=== PATIENT | male | born 1985 | race Caucasian/White ===

== ENCOUNTER 2020-01-15 13:34 | Outpatient (REF) | payer OTHER, SELFPAY | END 2020-01-15 13:35 | disposition home or self-care (01) | LOC: HO.SH 13:34 | PROVIDERS: PCP Family Medicine; Referring Provider Family Medicine; Visit Provider Family Medicine | DX: H90.3 Sensorineural hearing loss, bilateral (principal) | CPT/HCPCS: 92593; 99499; V5266 ==

== ENCOUNTER 2020-04-16 09:21 | Outpatient (REF) | payer OTHER, SELFPAY | END 2020-04-16 09:22 | disposition home or self-care (01) | LOC: HO.HAP 09:21 | PROVIDERS: Visit Provider Family Medicine | DX: Z46.1 Encounter for fitting and adjustment of hearing aid (principal) | CPT/HCPCS: 92593; 99499; V5266 ==

== ENCOUNTER 2020-04-24 08:11 | Outpatient (REF) | payer OTHER, SELFPAY | END 2020-04-24 08:12 | disposition home or self-care (01) | LOC: HO.HAP 08:11 | PROVIDERS: Visit Provider Family Medicine | DX: Z46.1 Encounter for fitting and adjustment of hearing aid (principal); H90.3 Sensorineural hearing loss, bilateral | CPT/HCPCS: V5014 ==

== ENCOUNTER 2020-07-14 12:50 | Outpatient (REF) | payer OTHER, MEDICAID, SELFPAY ==
--- NOTE | 2020-07-15 13:23 | MHC.AU.HFU ---
Hearing Instrument Follow-Up- Binaural Date of Visit: 07/14/20 Bottom Precipitator Operator Used: Not Applicable Right Ear: Family Welfare Social Work Professor: Oticon Model: OPN 2 PP Serial Number: New # after repair: [id number] Previous #: [id number] Repair Warranty: Repair warranty for right: 05/08/2019 Battery Size: 13 Tubing: #13M DRY Type of Mold: Acrykic Skeleton Dispensed By: [facility] Date of Fitting: Ship date per Oticon: 12/30/2016 Left Ear: Family Welfare Social Work Professor: Oticon Model: OPN 2 PP Serial Number: [id number] Battery Size: 13 TubinM DRY Type of Mold: Acrylic Skeleton Dispensed By: [facility] Date of Fitting: Ship date per Oticon: 12/30/2016 Follow-Up Summary: Maintenance appointment - Left ear mold broken. Took impressions of both ears without complication for new ear molds. Changed tubing for both OPN 2 aids and cleaned microphones and contacts. Hearing aid amplifying clearly. Reprogrammed the left ear per patient request as it has too much trebel sound . Decreased left aid 5839-3892 Hz overall 3 dB. Also changed the volume control changed back to being synchronized per patient request. Patient brought in his old binaural Oticon Acto BTEs he uses at work. He reports he is getting almost constant feedback from both and cannot hear well with them. Visual inspection shows complete occlusion of the rear and one side microphone on both aids with very muffled sound quality. The debris was very impacted and it took approxiamtely 1/2 hour to clean out only a portion of the impacted debris. However, patient reports significantly improved sound quality and no feedback. Recommendations: Recommendations (Other): Call to schedule appointment when new ear molds are received. Diagnosis Code(s): Primary Diagnosis: H90.3 Bilateral Sensorineural Hearing Loss Services Performed: Ear Impression (Quantity): 2 PAYNE Non-Quantity Charges: HACHECKB (MH>1 yr or new to us) Face to face appointment Signature: Provider: Megan Gan, [facility]
== END 2020-07-14 12:51 | disposition home or self-care (01) ==
LOC: HO.HAP 12:50
PROVIDERS: Visit Provider Family Medicine
DX: H90.3 Sensorineural hearing loss, bilateral (principal)
CPT/HCPCS: 92593; V5275

== ENCOUNTER 2020-07-31 12:22 | Outpatient (REF) | payer OTHER, MEDICAID, SELFPAY ==
--- NOTE | 2020-07-31 16:45 | MHC.AU.AEV ---
Adult Audiological Evaluation Date of Visit: 07/31/20 Reason for Appointment: Audiological re-evaluation to monitor the status of Mr. Kurtz's hearing loss. He has a longstanding history of bilateral sensorineural hearing loss and hearing aid use. Hearing loss was first diagnosed at age 26 and has been progressive. Does patient feel they have a hearing loss?: Yes If Yes, Which Ear?: Both Ears Has hearing been tested previously?: Yes [place] [facility] [place] Moderate to severe sensorineural hearing loss bilaterally with poor speech discrimination. 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, machine noise Medical History: Medical History: Unremarkable Medical History Hearing Instrument History- Right Ear: Research Development Director: Oticon Model: OPN 2 PP BTE Serial Number: [id number] Battery Size: 13 Repair Warranty: 05/07/2021 Loss and Damage Warranty: 01/29/2019 Dispensed By: [facility] Date of Fitting: Ship date per Oticon: 12/30/2016 Hearing Instrument History- Left Ear: Research Development Director: Oticon Model: OPN 2 PP BTE Serial Number: [id number] Battery Size: 13 Warranty: 01/30/2020 Loss and Damage Warranty: 01/29/2019 Dispensed By: [facility] Date of Fitting: Ship date per Oticon: 12/30/2016 Otoscopy: Right Ear: Unremarkable Left Ear: Unremarkable Tympanometry: Tympanometry performed due to: To assess integrity of the middle ear system Right Ear: Normal Middle Ear System (Type A) Left Ear: Reduced Middle Ear Compliance (Type As) Hearing Evaluation: Transducer(s) Used: Insert Earphones, Bone Conduction Method: Conventional Audiometry Stimuli Used: Pure Tones Right Ear: Description of Hearing: Moderate sloping to severe sensorineural hearing loss from 250-8000 Hz. Left Ear: Description of Hearing: Moderate sloping to moderately severe sensorineural hearing loss from 250-8000 Hz. Speech Recognition Threshold (SRT): Method Used: Monitored Live Voice Stimuli Used: Spondee Words Right Ear: 40 dBHL Left Ear: 45 dBHL Word Discrimination: Method: Monitored Live Voice Recorded Lists Word Lists Used: NU-6 Right Ear: 36% at 90 dBHL (recorded list) Left Ear: 32% at 95 dBHL (recorded list) Binaural: 36% at 90 dBHL (recorded list), 68% at 90 dBHL (monitored live voice) Comparison: Compared to most recent evaluation: Minor threshold increases compared to testing from 2019. Recommendations: Audiological re-evaluation in one year. Hearing aid(s) reprogrammed with updated test results. Diagnosis: Primary Diagnosis: H90.3 Bilateral Sensorineural Hearing Loss Services Performed: Comprehensive Audiological Evaluation (CPT 59936) Tympanometry (CPT 11417) Signature: Provider: Megan Sanderson, CCC-A
== END 2020-07-31 12:23 | disposition home or self-care (01) ==
LOC: HO.SH 12:22
PROVIDERS: Visit Provider Family Medicine
DX: H90.3 Sensorineural hearing loss, bilateral (principal)
CPT/HCPCS: 92557; 92567

== ENCOUNTER 2020-08-05 15:27 | Outpatient (REF) | payer OTHER, MEDICAID, SELFPAY | END 2020-08-05 15:28 | disposition home or self-care (01) | LOC: HO.HAP 15:27 | PROVIDERS: Visit Provider Family Medicine | DX: Z46.1 Encounter for fitting and adjustment of hearing aid (principal); H90.3 Sensorineural hearing loss, bilateral | CPT/HCPCS: V5264 ==

== ENCOUNTER 2020-08-13 13:14 | Outpatient (REF) | payer MEDICAID, SELFPAY | END 2020-08-13 13:15 | disposition home or self-care (01) | LOC: HO.HAP 13:14 | PROVIDERS: Visit Provider Family Medicine | DX: Z46.1 Encounter for fitting and adjustment of hearing aid (principal); H90.3 Sensorineural hearing loss, bilateral | CPT/HCPCS: V5275 ==

== ENCOUNTER 2020-09-07 12:53 | Outpatient (REF) | payer OTHER, MEDICAID, SELFPAY | END 2020-09-07 12:54 | disposition home or self-care (01) | LOC: HO.HAP 12:53 | PROVIDERS: Visit Provider Family Medicine | DX: Z13.89 Encounter for screening for other disorder (principal) ==

== ENCOUNTER 2020-10-19 12:42 | Outpatient (REF) | payer OTHER, SELFPAY | END 2020-10-19 12:43 | disposition home or self-care (01) | LOC: HO.HAP 12:42 | PROVIDERS: Visit Provider Family Medicine | DX: Z13.89 Encounter for screening for other disorder (principal) ==

== ENCOUNTER 2020-11-20 15:00 | Outpatient (REF) | payer OTHER, SELFPAY | END 2020-11-20 15:01 | disposition home or self-care (01) | LOC: HO.HAP 15:00 | PROVIDERS: Visit Provider Family Medicine | DX: Z46.1 Encounter for fitting and adjustment of hearing aid (principal); H90.3 Sensorineural hearing loss, bilateral | CPT/HCPCS: V5266 ==

== ENCOUNTER 2021-01-18 10:33 | Outpatient (REF) | payer OTHER, SELFPAY ==
--- NOTE | 2021-01-20 13:15 | MHC.AU.HFU ---
Hearing Instrument Follow-Up- Binaural Date of Visit: 01/18/21 Right Ear: Instructional Technology Coordinator: Oticon Model: OPN 2 PP BTE Serial Number: New # after repair: [id number] (Previous #: [id number]) Repair Warranty: Repair warranty for right: 05/07/2021 Loss and Damage Warranty: 01/29/2019 Service Plan: Battery Size: 13 Color: Black Tubing: #13M DRY Type of Mold: Microsonic Skeleton Dispensed By: [facility] Date of Fitting: Ship date per Oticon: 12/30/2016 Left Ear: Instructional Technology Coordinator: Oticon Model: OPN 2 PP BTE Serial Number: [id number] Repair Warranty: 01/30/2020 Loss and Damage Warranty: 01/29/2019 Battery Size: 13 Color: Black TubinM DRY Type of Mold: Microsonic Skeleton Dispensed By: [facility] Date of Fitting: Ship date per Oticon: 12/30/2016 Follow-Up Summary: Patient scheduled for hearing maintenance but reports he has been experiencing a rash of the Right Ear since shortly after his appointment on 10/19/20. He also questions if the tubing of the right aid is too short. Otoscopy shows Right otitis externa. Patient bought the Video News Editor Choice Earmold [place] I recommended and told him to use every day. Paid $10.00 Advise patient to see ENT for treatment of the right otitis externa. Cleaned both aids, changed tubing, cleaned microphones and contacts. Both aids amplifying well. Recommendations: Hearing instrument follow-up or maintenance as needed. Please contact our clinic with any questions or concerns. Diagnosis Code(s): Primary Diagnosis: H90.3 Bilateral Sensorineural Hearing Loss Services Performed: PAYNE Non-Quantity Charges: [facility] PAYNE Charge (V5299) Signature: Provider: Megan Gan, [facility]
== END 2021-01-18 10:34 | disposition home or self-care (01) ==
LOC: HO.HAP 10:33
PROVIDERS: Visit Provider Family Medicine
DX: Z46.1 Encounter for fitting and adjustment of hearing aid (principal); H90.3 Sensorineural hearing loss, bilateral
CPT/HCPCS: V5266; V5299

== ENCOUNTER 2021-01-18 11:07 | Outpatient (REF) | payer SELFPAY | END 2021-01-18 11:08 | disposition home or self-care (01) | LOC: HO.HAP 11:07 | PROVIDERS: Visit Provider Family Medicine | DX: Z46.1 Encounter for fitting and adjustment of hearing aid (principal) | CPT/HCPCS: V5267 ==

== ENCOUNTER 2021-04-21 10:31 | Outpatient (REF) | payer OTHER, SELFPAY | END 2021-04-21 10:32 | disposition home or self-care (01) | LOC: HO.HAP 10:31 | PROVIDERS: Visit Provider Family Medicine | DX: Z46.1 Encounter for fitting and adjustment of hearing aid (principal); H90.3 Sensorineural hearing loss, bilateral | CPT/HCPCS: V5266 ==

== ENCOUNTER 2021-07-19 09:23 | Outpatient (REF) | payer OTHER, SELFPAY | END 2021-07-19 09:24 | disposition home or self-care (01) | LOC: HO.HAP 09:23 | PROVIDERS: Visit Provider Family Medicine | DX: Z46.1 Encounter for fitting and adjustment of hearing aid (principal); H90.3 Sensorineural hearing loss, bilateral | CPT/HCPCS: 92593; V5266 ==

== ENCOUNTER 2021-10-20 13:49 | Outpatient (REF) | payer OTHER, SELFPAY | END 2021-10-20 13:50 | disposition home or self-care (01) | LOC: HO.HAP 13:49 | PROVIDERS: Visit Provider Family Medicine | DX: Z46.1 Encounter for fitting and adjustment of hearing aid (principal); H90.3 Sensorineural hearing loss, bilateral | CPT/HCPCS: 92593; V5266 ==

== ENCOUNTER 2022-01-14 14:58 | Outpatient (REF) | payer OTHER, SELFPAY | END 2022-01-14 14:59 | disposition home or self-care (01) | LOC: HO.SH 14:58 | PROVIDERS: Visit Provider Family Medicine | DX: Z01.118 Encounter for examination of ears and hearing with other abnormal findings (principal); H90.3 Sensorineural hearing loss, bilateral | CPT/HCPCS: 92557; 92567 ==

== ENCOUNTER 2022-01-24 12:50 | Outpatient (REF) | payer OTHER, SELFPAY ==
--- NOTE | 2022-01-24 18:03 | MHC.AU.MED ---
Medical Clearance for Hearing Instrumentation Date: 01/24/22 Patient Name: David Kurtz Date of : 1985 Primary Care Provider: Referring Provider: Breonna Howard MD We have seen your patient on 01/24/22 and have determined that they are a candidate for amplification (See accompanying report). Specifically, they would benefit from: Hearing aid use in both ears There is a statute that addresses Medical Evaluation Requirements prior to fitting a patient with a hearing aid. According to [place] statute 265 CMR:6.03(1), (a) General. Except as provided in 265 CMR 6.03(1)(b), a print journalist shall not sell a hearing aid unless the prospective user has presented to the print journalist a written statement signed by a licensed physician that states that the patient's hearing loss has been medically evaluated and the patient may be considered a candidate for a hearing aid. The medical evaluation must have taken place within the preceding six months. Please note: Due to the [place] Statute referenced above, we cannot accept a signature other than that of a licensed physician. CHEF TEACHER and PA signatures cannot be accepted. I am in agreement with the above recommendation. There is no medical contraindication for hearing instrumentation. Physician Signature Date Physician Name (Printed)
--- NOTE | 2022-01-25 07:41 | MHC.AU.HAS ---
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 Hearing Aid Prescription: Based on the individual?s shared listening needs, communication environments, dexterity, desire for connectivity, and personal preferences, the following prescription for amplification has been made: Right ear: Application Integration Specialist: Oticon Model: OPN 2 PP BTE Battery Size: 13 Color: Black Tubing: #13M DRY - NEED TO USE CEMENT Type of Mold: Microsonic Skeleton Left ear:Left ear prescription to be same as Right Hearing Aid above: Application Integration Specialist: Oticon Model: OPN 2 PP BTE Battery Size: 13 Color: Black TubinM DRY - use cement Type of Mold: Microsonic Skeleton Plan of Care: Patient wishes to purchase hearing aids as prescribed Earmold Impressions Taken Medical Clearance to be requested from PCP/ENT Hearing Instrument Fitting to be scheduled when materials arrive Primary Diagnosis: H90.3 Bilateral Sensorineural Hearing Loss Signature:Provider: Jenifer Gan, [facility]-A
== END 2022-01-24 12:51 | disposition home or self-care (01) ==
LOC: HO.HAP 12:50
PROVIDERS: Visit Provider Family Medicine
DX: Z46.1 Encounter for fitting and adjustment of hearing aid (principal); H90.3 Sensorineural hearing loss, bilateral
CPT/HCPCS: 92591; 92593; V5266; V5275

== ENCOUNTER 2022-04-26 12:34 | Outpatient (REF) | payer OTHER, SELFPAY ==
--- NOTE | 2022-04-26 13:24 | MHC.AU.HA3 ---
Hearing Instrument Follow-Up- Binaural Date of Visit: 04/26/22 Right Ear: Make, Model, Color, Serial Number: Oticon OPN 2 BTE PP SN: [id number] Color: Black Data Processing Systems Project Planner Repair Warranty: 05/07/2021 Data Processing Systems Project Planner Loss and Damage Warranty: 01/29/2019 Battery Size: 13 Manual Qa Tester/Slim Tube: 13 DriTube Earmold/Dome/CShell/SlimTip:Microsonic Skeleton Dispensed By: [facility] Date of Fittin12/30/2016 Left Ear: Make, Model, Color, Serial Number: Oticon OPN 2 BTE PP SN: [id number] Color: Black Data Processing Systems Project Planner Repair Warranty: 01/30/2020 Data Processing Systems Project Planner Loss and Damage Warranty: 01/29/2019 Battery Size: 13 Manual Qa Tester/Slim Tube: 13 DriTube Earmold/Dome/CShell/SlimTip: Microsonic Skeleton Dispensed By: [facility] Date of Fittin12/30/2016 Follow-Up Summary: David returned for routine hearing aid maintenance and tubing change. Cleaned hearing aids and earmolds, vacuumed microphones, and replaced tubing. Used DriTube at David's request. A listening check demonstrated that the hearing aids are in good working order. Provided 12 batteries. Recommendations: David scheduled three month tubing change. Still waiting for medical clearance to order new hearing aids - David requested a copy of the medical clearance form to bring to his PCP to sign. Diagnosis Code(s): Primary Diagnosis: H90.3 Bilateral Sensorineural Hearing Loss Signature: Provider: Jenifer Barriga, [facility]
== END 2022-04-26 12:35 | disposition home or self-care (01) ==
LOC: HO.HAP 12:34
PROVIDERS: Visit Provider Family Medicine
DX: Z46.1 Encounter for fitting and adjustment of hearing aid (principal); H90.3 Sensorineural hearing loss, bilateral
CPT/HCPCS: 92593; 99499; V5266

== ENCOUNTER 2022-05-31 14:48 | Outpatient (REF) | payer OTHER, SELFPAY ==
--- NOTE | 2022-05-31 16:00 | MHC.AU.HA2 ---
Hearing Instrument Fitting- Adult- Binaural Date of Visit: 05/31/22 Hearing Instruments Dispensed: Right Ear: Make, Model, Color, Serial Number: Oticon Xceed 2 BTE SN: [id number] Color: Black Crop Puller Repair Warranty: 06/05/2025 Crop Puller Loss and Damage Warranty: 06/05/2025 Battery Size: 13 Hot Shot/Slim Tube: 13 DriTube Earmold/Dome/CShell/SlimTip: Microsonic Skeleton Left Ear: Make, Model, Color, Serial Number: Oticon Xceed 2 BTE 13 SP SN: [id number] Color: Black Crop Puller Repair Warranty: 06/05/2025 Crop Puller Loss and Damage Warranty: 06/05/2025 Battery Size: 13 Hot Shot/Slim Tube: 13 DriTube Earmold/Dome/CShell/SlimTip: Microsonic Skeleton Summary of Fitting: [facility] hearing aids were programmed to his most recent audiogram on adaptation level 3, VAC+ programming strategy per patient preference over DSE. VC, program change and mute are enabled. Start up jingle is disabled per patient preference. 4 programs include: 1. general, 2. lecture, 3. speech in noise, 4. comfort. Reviewed differences between programs. Real ear measurements reveals the hearing aids are functioning and grossly meeting targets binaurally. Ear molds fit well, no feedback noted. The patient prefers no vent plugs so I adjusted the acoustic settings in Genie. David reported a comfortable fit and good volume bilaterally. David prefers to wear his older hearing aids to work and will wear his newer hearing aids outside of work. He is very comfortable with unpairing and pairing his hearing aids to his iPhone. He will contact our clinic for follow-up and hearing aid maintenance as needed. 12 #13 batteries dispensed today. He signed the delivery receipt and a copy was given. Of note, David may donate an older pair of hearing aids to [facility]. Diagnosis Code(s): Primary Diagnosis: H90.3 Bilateral Sensorineural Hearing Loss Signature: Provider: Megan Tsai, [facility]
== END 2022-05-31 14:49 | disposition home or self-care (01) ==
LOC: HO.HAP 14:48
PROVIDERS: Visit Provider Family Medicine
DX: Z46.1 Encounter for fitting and adjustment of hearing aid (principal); H90.3 Sensorineural hearing loss, bilateral
CPT/HCPCS: 92595; V5011; V5020; V5160; V5261; V5264; V5266

== ENCOUNTER 2022-05-31 15:37 | Outpatient (REF) | payer SELFPAY | END 2022-05-31 15:38 | disposition home or self-care (01) | LOC: HO.HAP 15:37 | PROVIDERS: Visit Provider Family Medicine | DX: Z46.1 Encounter for fitting and adjustment of hearing aid (principal); H90.3 Sensorineural hearing loss, bilateral | CPT/HCPCS: 92700 ==

== ENCOUNTER 2022-08-01 14:46 | Outpatient (REF) | payer OTHER, SELFPAY | END 2022-08-01 14:47 | disposition home or self-care (01) | LOC: HO.HAP 14:46 | PROVIDERS: Visit Provider Family Medicine | DX: Z46.1 Encounter for fitting and adjustment of hearing aid (principal); H90.3 Sensorineural hearing loss, bilateral | CPT/HCPCS: V5266 ==

== ENCOUNTER 2022-11-01 14:44 | Outpatient (REF) | payer BC, SELFPAY ==
--- NOTE | 2022-11-01 15:42 | MHC.AU.HA3 ---
Hearing Instrument Follow-Up- Binaural Date of Visit: 11/01/22 Right Ear: Ankit, Model, Color, Serial Number: Otaryan Xceed 2 BTE SN: [id number] Color: Black Expenditure Requisition Clerk Repair Warranty: 06/05/2025 Expenditure Requisition Clerk Loss and Damage Warranty: 06/05/2025 [facility] Service Plan: 06/01/2023 Battery Size: 13 Entry Processor/Slim Tube: 13 DriTube Earmold/Dome/CShell/SlimTip:Microsonic Skeleton Dispensed By: [facility] Date of Fittin05/31/2022 Left Ear: Ankit, Model, Color, Serial Number: Oticon Xceed 2 BTE 13 SP SN: [id number] Color: Black Expenditure Requisition Clerk Repair Warranty: 06/05/2025 Expenditure Requisition Clerk Loss and Damage Warranty: 06/05/2025 [facility] Service Plan: 06/01/2023 Battery Size: 13 Entry Processor/Slim Tube: 13 DriTube Earmold/Dome/CShell/SlimTip: Microsonic Skeleton Dispensed By: [facility] Date of Fittin05/31/2022 Follow-Up Summary: David returned for routine hearing aid maintenance. Cleaned both hearing aids and ear molds. Vacuumed microphones. Replaced tubing. Clean battery contacts. A listening check demonstrated that the hearing aids are in good working order. Attempted to connect his old OPN hearing aids to Karie again without success. David does not want these hearing aids repaired or tubing replaced at this time as he only uses them as back up. Since the programming changes at his last appointment, his Xceed hearing aids have otherwise been good. David's insurance has changed to [employer]. He understands hearing aid services are no longer covered and there will be a [id number] following the one-year service agreement (starting in May 2023). Quoted $50.00 for tubing changes. He also knows any service on his old hearing aids will incur a fee. Recommendations: Hearing instrument follow-up or maintenance as needed. Diagnosis Code(s): Primary Diagnosis: H90.3 Bilateral Sensorineural Hearing Loss Signature: Provider: Jenifer Barriga, [facility]
== END 2022-11-01 14:45 | disposition home or self-care (01) ==
LOC: HO.HAP 14:44
PROVIDERS: Visit Provider Family Medicine
DX: Z13.89 Encounter for screening for other disorder (principal)

== ENCOUNTER 2023-01-30 14:55 | Outpatient (REF) | payer SELFPAY | END 2023-01-30 14:56 | disposition home or self-care (01) | LOC: HO.HAP 14:55 | PROVIDERS: Visit Provider Family Medicine | DX: Z13.89 Encounter for screening for other disorder (principal) ==

== ENCOUNTER 2023-04-03 14:48 | Outpatient (REF) | payer SELFPAY ==
--- NOTE | 2023-04-04 10:14 | MHC.AU.HA3 ---
Hearing Instrument Follow-Up- Binaural Date of Visit: 04/03/23 Right Ear: Ankit, Model, Color, Serial Number: Wenceslao Jo 2 BTE SN: [id number] Color: Black Dock Associate Repair Warranty: 06/05/2025 Dock Associate Loss and Damage Warranty: 06/05/2025 [facility] Service Plan: 06/01/2023 Battery Size: 13 Processing Manager/Slim Tube: 13 DriTube Earmold/Dome/CShell/SlimTip:Microsonic Skeleton Dispensed By: [facility] Date of Fittin05/31/2022 Left Ear: Ankit, Model, Color, Serial Number: Wenceslao Xceed 2 BTE 13 SP SN: [id number] Color: Black Dock Associate Repair Warranty: 06/05/2025 Dock Associate Loss and Damage Warranty: 06/05/2025 [facility] Service Plan: 06/01/2023 Battery Size: 13 Processing Manager/Slim Tube: 13 DriTube Earmold/Dome/CShell/SlimTip: Microsonic Skeleton Dispensed By: [facility] Date of Fittin05/31/2022 Follow-Up Summary: David returned for routine tubing change. He reported that since the last tubing change, the helix portion of his right ear mold kept popping out of his ear, likely due to angle of tube. He also reported the tubing was pinched as it extends down into the vent. However, David prefers the size 13 dri tube which is thicker and barrier between tube and vent worn in right mold, causing tubing to extend into vent. Cleaned both hearing aids and ear molds. Vacuumed microphones. Ran through dehumidifier. Replaced tubing and recessed tubing in mold slightly to address David's concern of tubing extending into vent. Cut length of tubes on David's ears to ensure proper angle. Tubes slightly long per David's preference. Otoscopy revealed clear right ear canal and some wax in the left ear canal. Does not warrant removal at this time; however, David would prefer to have wax removal here when needed. Quoted $35.00 per ear for cerumen management. David opted to schedule one additional tubing change prior to [facility] Service Agreement expiring. He understands future tubing changes will incur $50.00 fee. Offered for David to purchase tubes for $1.00 to retube himself. However, he reported that he would prefer to come for appointments. Recommendations: Hearing instrument follow-up or maintenance as needed. Please contact our clinic with any questions or concerns. Diagnosis Code(s): Primary Diagnosis: H90.3 Bilateral Sensorineural Hearing Loss Signature: Provider: Jenifer Barriga, [facility]
== END 2023-04-03 14:49 | disposition home or self-care (01) ==
LOC: HO.HAP 14:48
PROVIDERS: Visit Provider Family Medicine
DX: Z13.89 Encounter for screening for other disorder (principal)

== ENCOUNTER 2023-05-31 13:49 | Outpatient (REF) | payer SELFPAY | END 2023-05-31 13:50 | disposition home or self-care (01) | LOC: HO.HAP 13:49 | PROVIDERS: Visit Provider Family Medicine | DX: Z13.89 Encounter for screening for other disorder (principal) ==

== ENCOUNTER 2023-09-06 15:52 | Outpatient (REF) | payer SELFPAY | END 2023-09-06 15:53 | disposition home or self-care (01) | LOC: HO.HAP 15:52 | PROVIDERS: Visit Provider Internal Medicine | DX: Z46.1 Encounter for fitting and adjustment of hearing aid (principal); H90.3 Sensorineural hearing loss, bilateral | CPT/HCPCS: 92593 ==

== ENCOUNTER 2023-09-28 14:28 | Outpatient (REF) | payer BC, SELFPAY | END 2023-09-28 14:29 | disposition home or self-care (01) | LOC: HO.SH 14:28 | PROVIDERS: Visit Provider Family Medicine | DX: Z01.118 Encounter for examination of ears and hearing with other abnormal findings (principal); H90.3 Sensorineural hearing loss, bilateral | CPT/HCPCS: 92557; 92567 ==

== ENCOUNTER 2024-01-09 14:15 | Outpatient (REF) | payer SELFPAY | END 2024-01-09 14:16 | disposition home or self-care (01) | LOC: HO.HAP 14:15 | PROVIDERS: Visit Provider Family Medicine | DX: Z46.1 Encounter for fitting and adjustment of hearing aid (principal); H90.3 Sensorineural hearing loss, bilateral | CPT/HCPCS: 92593 ==

== ENCOUNTER 2024-05-14 13:46 | Outpatient (REF) | payer SELFPAY | END 2024-05-14 13:47 | disposition home or self-care (01) | LOC: HO.HAP 13:46 | PROVIDERS: Visit Provider Family Medicine | DX: Z46.1 Encounter for fitting and adjustment of hearing aid (principal); H90.3 Sensorineural hearing loss, bilateral | CPT/HCPCS: 92593; V5266 ==

== ENCOUNTER 2024-09-17 13:42 | Outpatient (REF) | payer SELFPAY | END 2024-09-17 13:43 | disposition home or self-care (01) | LOC: HO.HAP 13:42 | PROVIDERS: Visit Provider Family Medicine | DX: Z46.1 Encounter for fitting and adjustment of hearing aid (principal); H90.3 Sensorineural hearing loss, bilateral | CPT/HCPCS: 92593 ==